=== PATIENT | male | born 1940 | race Caucasian/White ===

== ENCOUNTER 2025-03-10 22:15 | Inpatient (IN) | payer MEDICARE ==
[~2025-03-10] VITALS: Ht 165.1 cm; Wt 48.4 kg
[2025-03-10 22:28] LABS: BASOPHILS PERCENT AUTO 1 % (0-2); EOSINOPHILS ABSOLUTE AUTO 0.12 K/mm3 (0.00-0.68); EOSINOPHILS PERCENT AUTO 1 % (0-6); Hematocrit 39.1 % (37.0-53.0); Hemoglobin 12.8 g/dL (13.5-17.5); IMMATURE GRAN ABSOLUTE AUTO 0.02 K/mm3 (0.00-0.10); IMMATURE GRAN PERCENT AUTO 0 % (0-1); LYMPHOCYTES PERCENT AUTO 13 % (21-46); MONOCYTES ABSOLUTE AUTO 0.49 K/mm3 (0.16-1.47); MONOCYTES PERCENT AUTO 5 % (4-13); Mean Corpuscular HGB 28.5 pg (26.0-34.0); Mean Corpuscular HGB Conc 32.7 g/dL (31.5-36.5); Mean Corpuscular Volume 87 fL (80-100); NEUTROPHILS ABSOLUTE AUTO 8.15 K/mm3 (1.96-9.15); NEUTROPHILS PERCENT AUTO 80 % (41-73); Platelet Count 232 K/mm3 (150-400); RDW Coefficient Variation 13.8 % (11.7-14.2); RDW Standard Deviation 44.1 fL (35.1-46.3); Red Blood Cell Count 4.49 M/mm3 (4.30-5.90); White Blood Cell Count 10.18 K/mm3 (4.00-11.30)
[2025-03-10 22:50] LABS: Albumin, Blood 3.8 g/dL (3.4-5.0); Albumin/Globulin Ratio 1.2 (0.8-1.8); Bilirubin, Total 0.4 mg/dL (0.1-1.0); Bun/Creatinine Ratio 25.1 (12.0-20.0); Creatinine, Blood 0.72 mg/dL (0.60-1.20); Globulin, Blood 3.2 g/dL (2.2-4.0); Potassium, Blood 4.4 mmol/L (3.5-5.5)
[2025-03-11] VITALS (29 sets, daily range): BP systolic 99–188; BP diastolic 40–130
[2025-03-11] MEDS ORDERED: Aspirin 81 MG Chew PO ONE (00:15)
[2025-03-11] MEDS ORDERED: Clopidogrel Bisulfate 300 MG TABLET PO ONE (01:25)
[2025-03-11] MEDS ORDERED: Magnesium Hydroxide Conc 10 ML UDC PO PRN (01:30)
[2025-03-11] MEDS ORDERED: Ondansetron 4 MG TAB PO PRN (01:30)
[2025-03-11] MEDS ORDERED: Nitroglycerin 0.4 MG SUBL SL PRN (01:30)
[2025-03-11] MEDS ORDERED: Lactated Ringer's 1,000 ML IV SCH (02:00)
[2025-03-11 02:02] LABS: CHOL/HDL RATIO 1.6; Cholesterol 122 mg/dL (50-200); HDL Cholesterol 74 mg/dL (>39); LDL/HDL RATIO 0.5; Low Density Lipoprotein Chol 39 mg/dL (0-110); Magnesium, Blood 2.1 mg/dL (1.6-2.4); Triglycerides 43 mg/dL (30-160); Very Low Density Lipoprot Chol 8 mg/dL (6-32)
[2025-03-11] MEDS ORDERED: Dose Adjust by Pharmacy XX STA ×2 (02:27→22:22)
[2025-03-11 02:28] LABS: Anti-Xa UFH, PHA Monitoring <0.10 IU/mL; International Normalized Ratio 1.03
[2025-03-11] MEDS ORDERED: Heparin Sodium 5000 Units/ML 1ML MDV IV ONE (02:30)
[2025-03-11] MEDS ORDERED: Heparin Sodium,Porcine/0.5 NS 500 ML IV SCH (02:30)
[2025-03-11] MEDS ORDERED: Isosorbide Mono30 MG PO (04:07)
[2025-03-11] MEDS ORDERED: PANT40 PO (04:07)
[2025-03-11] MEDS ORDERED: CLOP75 PO (04:07)
[2025-03-11] MEDS ORDERED: LISI20 PO (04:08)
[2025-03-11] MEDS ORDERED: MAGNESIUM OXID500 MG PO (04:09)
[2025-03-11] MEDS ORDERED: AMLO5 PO (04:09)
[2025-03-11] MEDS ORDERED: CARV6.25 PO (04:09)
[2025-03-11] MEDS ORDERED: TAMS.4ER PO (04:10)
[2025-03-11] MEDS ORDERED: ZOCOR20 MG PO (04:10)
[2025-03-11] MEDS ORDERED: ASPI81CH PO (04:11)
[2025-03-11] MEDS ORDERED: GABA100 PO (04:11)
--- NOTE | 2025-03-11 06:46 | NUR ---
ADMISSION/SHIFT SUMMARY REPORT RECEIVED FROM ED NURSE. PT STOOD AND TRASFERRED TO BED W/ MINIMAL ASSISTANCE. PT A/OX4, ABLE TO MAKE NEEDS KNOWN. BP STABLE. ON TELE, SB 50S, PT DENIED CP/PRESSURE THROUGHOUT SHIFT. SPO2 >95% ON RA. HEPARIN INFUSING PER EMAR. CARDIOLOGY CONSULT CALLED IN. PT BLADDER SCANNED D/T NO OUTPUT SINCE ADMISSION, <350 MLS. DAUGHTER AT BEDSIDE. NO OTHER CHANGES. WILL REPORT TO ONCOMING RN.
[2025-03-11] MEDS ORDERED: NS 250 ML IV ONE (08:57)
[2025-03-11] MEDS ORDERED: Heparin Sodium 1000 Units/ML 10ML MDV ONE (08:57)
[2025-03-11] MEDS ORDERED: NiCARdipine HCL 1,000 MCG/5 ML SYR ONE (08:58)
[2025-03-11] MEDS ORDERED: Nitroglycerin 2 MG/20 ML BTL ONE (08:58)
[2025-03-11] MEDS ORDERED: NS 1,000 ML IV ONE ×2 (08:58→10:48)
[2025-03-11] MEDS ORDERED: Atorvastatin 40 MG Tab PO SCH (09:00)
[2025-03-11] MEDS ORDERED: Sennosides 8.6 MG Tab PO SCH (09:00)
[2025-03-11] MEDS ORDERED: Losartan Potassium 25 MG Tab PO SCH (09:00)
[2025-03-11] MEDS ORDERED: FentaNYL Citrate 50 MCG/ML 2 ML Injection ONE (10:48)
[2025-03-11] MEDS ORDERED: Midazolam HCl 1MG / ML 2ML Vial ONE (10:48)
[2025-03-11] MEDS ORDERED: NS 1,000 ML IV SCH (11:45)
--- NOTE | 2025-03-11 15:48 | NUR ---
End of shift note. Angio this morning, plan is to [facility] transfer to [facility] when a bed is available. Hospitalist is aware. Hep gtt was restarted after TR band recovery. Pt tolerated well. Pt has been OOB to the bathroom, some complaint of SOB while moving. No complaints CP. Daughter has been at bedside for most of the shift. Pt is able to make needs known, call light is within reach.
[2025-03-11] MEDS ORDERED: Lisinopril 20 MG Tab PO SCH ×2 (18:00→21:00)
--- NOTE | 2025-03-11 18:29 | NUR ---
TR BAND FULLY RECOVERED AND REMOVED, CLEANED AND TEGADERM PLACE.
--- NOTE | 2025-03-11 20:00 | NUR ---
ASSUMED CARE AT 1900. PT RESTING COMFORTABLY IN BED, DENIES PAIN, ENDORSES MILD SOB. RADIAL SITE MILDLY TENDER, SLIGHTLY PUFFY, NO BLEEDING OR OOZING. 1999 PT APPEARS DIAPHORETIC, BP CLIMBING FROM 140'S SYSTOLIC UP TO 180'S. PT DENIES ANY PAIN IN CHEST OR SHOULDER, NITRO GIVEN, BP DECREASED DOWN TO 160'S, DIAPHORESIS RESOLVED. WILL CONTINUE TO MONITOR.
[2025-03-11] MEDS ORDERED: Gabapentin 100 MG Cap PO SCH (21:00)
[2025-03-11] MEDS ORDERED: Tamsulosin HCl 0.4 MG Cap PO SCH (21:00)
--- NOTE | 2025-03-11 23:05 | NUR ---
CALL PLACED TO MD REGARDING PTS BLOOD PRESSURE. BLOOD PRESSURE WAS REDUCED TO 110 SYSTOLIC, BUT BEGAN ELEVATING INTO 180'S AGAIN. PT NO LONGER DIAPHORETIC, STILL DENYING CHEST/SHOULDER/JAW PAIN. MD NOTIFIED, AWAITING NEW ORDERS.
[2025-03-11] MEDS ORDERED: HydrALAZINE HCl 20 MG / ML 1ML Vial IV PRN (23:10)
[2025-03-12] VITALS (17 sets, daily range): BP systolic 68–153; BP diastolic 36–62
[2025-03-12] MEDS ORDERED: Albuterol 2.5 MG/3 ML VIAL INH PRN (00:05)
[2025-03-12] MEDS ORDERED: Ipratropium/Albuterol SulF 2.5-0.5MG/3 ML Amp INH SCH (00:05)
[2025-03-12 00:58] LABS: BASOPHILS ABSOLUTE AUTO 0.08 K/mm3 (0.00-0.23); BASOPHILS PERCENT AUTO 1 % (0-2); EOSINOPHILS ABSOLUTE AUTO 0.32 K/mm3 (0.00-0.68); EOSINOPHILS PERCENT AUTO 4 % (0-6); Hematocrit 37.1 % (37.0-53.0); Hemoglobin 12.3 g/dL (13.5-17.5); IMMATURE GRAN ABSOLUTE AUTO 0.01 K/mm3 (0.00-0.10); IMMATURE GRAN PERCENT AUTO 0 % (0-1); LYMPHOCYTES ABSOLUTE AUTO 1.95 K/mm3 (0.84-5.20); LYMPHOCYTES PERCENT AUTO 26 % (21-46); MONOCYTES PERCENT AUTO 7 % (4-13); Mean Corpuscular HGB 28.3 pg (26.0-34.0); Mean Corpuscular HGB Conc 33.2 g/dL (31.5-36.5); Mean Corpuscular Volume 85 fL (80-100); Mean Platelet Volume 9.2 fL (9.1-12.4); NEUTROPHILS ABSOLUTE AUTO 4.58 K/mm3 (1.96-9.15); NEUTROPHILS PERCENT AUTO 62 % (41-73); Platelet Count 223 K/mm3 (150-400); RDW Coefficient Variation 14.1 % (11.7-14.2); RDW Standard Deviation 43.8 fL (35.1-46.3); Red Blood Cell Count 4.35 M/mm3 (4.30-5.90); White Blood Cell Count 7.44 K/mm3 (4.00-11.30)
[2025-03-12] MEDS ORDERED: LORazepam 0.5 MG Tab PO ONE (01:00)
[2025-03-12 01:24] LABS: Albumin, Blood 3.6 g/dL (3.4-5.0); Albumin/Globulin Ratio 1.2 (0.8-1.8); Bilirubin, Total 0.5 mg/dL (0.1-1.0); Bun/Creatinine Ratio 30.1 (12.0-20.0); Calcium, Blood 8.9 mg/dL (8.5-10.1); Creatinine, Blood 0.7 mg/dL (0.60-1.20); Magnesium, Blood 1.9 mg/dL (1.6-2.4); Potassium, Blood 3.6 mmol/L (3.5-5.5); Total Protein, Blood 6.6 g/dL (6.4-8.2)
--- NOTE | 2025-03-12 02:05 | NUR ---
HYDRALAZINE ADMINISTERED AT 2335, SPRAYER AUTOMATIC SPRAY MACHINE CALLED TO REPORT PTS HR IN 130'S. UPON ARRIVAL TO ROOM, MEDICAL AFFAIRS DIRECTOR AND RT AT BEDSIDE. RT ADMINISTERING BREATHING TREATMENT, PT VERY DYSPNEIC WITH INCREASED WORK OF BREATHING. LUNG SOUNDS VERY TIGHT WITH SEVERE WHEEZES. BLOOD PRESSURE ELEVATED TO 190'S SYSTOLIC. ICU AND PCU CHARGE NURSES TO BEDSIDE WELL. MD NOTIFIED AT TO ROOM AT 0010. AFTER BREATHING TREATMENT, PT REPORTED INCREASED EASE OF BREATHING. LUNG SOUNDS LESS WHEEZY AND TIGHT. IMMEDIATELY AFTER BREATHING TREATMENT, PT REPORTED "SHAKING LEGS". THIS RN NOTICED PTS THIGH MUSCLES APPEARED TO BE SPASMING REPEATEDLY AND QUICKLY. NOTIFIED AND BACK TO BEDSIDE. LABS ORDERED, BUT RESULTED WITH NO SIGNIFICIANT ABNORMALITIES. CHECKED ON PT AGAIN AT 0145, PT REPORTED HALLUCINATIONS OF PEOPLE IN RED, GLIMMERING PILLARS AND CEMENT WALKWAYS. [employer] CONSULTANT TO BEDSIDE. SMILE EQUAL BILATERALLY, STRENGTH EQUAL IN BUE. PERRLA, PUPILS 2MM. PT REPORTS EXTREME SLEEP DEPRIVATION AND REQUESTED ATIVAN. WILL CONTINUE TO MONITOR.
--- NOTE | 2025-03-12 04:22 | NUR ---
SHIFT SUMMARY PT A/OX4, DENIES PAIN, SEE PREVIOUS NOTES REGARDING HYPERTENSIVE AND RESPIRATORY EPISODES THIS SHIFT. PT ALSO REPORTED NEW ONSET HALLUCINATIONS AND SEVERE LONG STANDING SLEEP DEPRIVATION. PT AMBULATING WITH SBA TO BATHROOM WITH IV POLE. HAVING REGULAR BMS AND URINATION PATTERNS. BLOOD PRESSURE HAS STABILIZED IN 110 S, HEART RATE 50 S. HEPARIN GTT RUNNING AT 16. WILL CONTINUE TO MONITOR.
[2025-03-12 04:49] LABS: Hematocrit 35.1 % (37.0-53.0); Hemoglobin 11.8 g/dL (13.5-17.5); Mean Corpuscular HGB 29.3 pg (26.0-34.0); Mean Corpuscular HGB Conc 33.6 g/dL (31.5-36.5); Mean Corpuscular Volume 87 fL (80-100); Mean Platelet Volume 9.4 fL (9.1-12.4); Platelet Count 206 K/mm3 (150-400); RDW Standard Deviation 44.6 fL (35.1-46.3); Red Blood Cell Count 4.03 M/mm3 (4.30-5.90); White Blood Cell Count 9.22 K/mm3 (4.00-11.30)
[2025-03-12] MEDS ORDERED: Clopidogrel Bisulfate 75 MG Tab PO SCH (05:00)
[2025-03-12] MEDS ORDERED: Pantoprazole Sodium 40 MG Tab PO SCH (06:00)
[2025-03-12] MEDS ORDERED: Clarify Drug Order XX ONE (06:20)
--- NOTE | 2025-03-12 08:50 | NUR ---
AM NOTE: PT A/O ON ROOM AIR LYING IN BED THIS MORNING. HR 50-60s AND BP 145/56. PT REPORTS NO CHEST PAIN THIS MORNING AFTER REPORTS OF IT LAST NIGHT. MD AT BEDSIDE THIS MORNING TO DISCUSS CARE PLAN WITH PT AND EVENTUALLY TRANSFER TO [facility] FOR FURTHER CARDIAC INTERVENTION. PT REPORTS HAVING POOR SLEEP LAST NIGHT, SO ALLOWING REST THIS MORNING. PT LYING IN BED, CALL WITHIN REACH.
[2025-03-12] MEDS ORDERED: Aspirin 81 MG Chew PO SCH (09:00)
[2025-03-12] MEDS ORDERED: Isosorbide Mononitrate 30 MG TABCR PO SCH (09:00)
[2025-03-12] MEDS ORDERED: Magnesium Oxide 400 MG Tab PO SCH (09:00)
[2025-03-12] MEDS ORDERED: NS 1,000 ML IV ONE (11:20)
[2025-03-12] MEDS ORDERED: NS 500 ML IV ONE (11:25)
--- NOTE | 2025-03-12 12:48 | NUR ---
update patient blood pressure 87/47 map of 59. this rn called md croft to update on blood pressure. Patient is non sympotmatic with blood pressures. Md Croft said to continue monitor and to call if patient becomes symptomatic with soft blood pressures.
--- NOTE | 2025-03-12 13:30 | NUR ---
TRANSFER OF CARE: GAVE REPORT TO GANGA PUENTES AT APPROX 1330 TO ASSUME CARE OF PT. PT LYING IN BED, CALL WITHIN REACH.
--- NOTE | 2025-03-12 13:54 | NUR ---
ASSUMED CARE: ASSUMED CARE OF PT @1350. PT ALERT AND ORIENTED X4, ABLE TO FOLLOW COMMANDS AND MAKE NEEDS KNOWN. STRENGTH EQUAL BILATERALLY. HR SR. AFEBILE. SPO2 >96% ON ROOM AIR. RESPIRTAIONS EVEN AND UNLABORED. LUNG SOUNDS DIM IN BASES. PT POST ANGIOGRAM 03/11/25. R. RADIAL SITE WITH TEGADERM IN PLACE. SITE TENDER, NO BRUISING OOZING NOTED. HEPARING GTT. PT REMAINS ON WAIT LIST FOR [facility]. DAUGHTER AT BEDSIDE AND UPDATED ON PT PLAN OF CARE. BED IN LOW, CALL LIGHT IN REACH.
--- NOTE | 2025-03-12 17:15 | NUR ---
SHIFT SUMMARY: PT ALERT AND ORIENTED X4, ABLE TO FOLLOW COMMANDS AND MAKE NEEDS KNOWN. STRENGTH EQUAL BILATERALLY. SENSATION INTACT. BP STABLE. HR SR 70'S. AFEBRILE. SPO2 >95% ON ROOM AIR. LUNG SOUNDS COARSE, PT WITH NON PRODUCTIVE COUGH. RESPIRTAIONS EVEN AND UNLABORED AT REST. AMIO GTT @0.5MG/HR. PT RECEIVED 1 UNIT OF PRBC, TOLERATED WELL. ABD SOFT NON TENDER, BOWEL SOUNDS +. PULSES PALPABLE THROUGHOUT. +2 EDEMA NOTED IN BLE. AT BEDSIDE THIS EVENING, UPDATED ON PT PLAN OF CARE. BED IN LOW, CALL LIGHT IN REACH, WILL REPORT TO ONCOMING RM.
--- NOTE | 2025-03-12 17:22 | NUR ---
SHIFT SUMMARY: NO ACUTE CHANGES SINCE TRANSFER OF CARE. PT REMAINS ON HEPARIN DRIP. REMAINS ON TRANSFER LIST FOR [facility]. BED IN LOW, CALL LIGHT IN REACH, WILL REPORT TO ONCOMING RN
[2025-03-12] MEDS ORDERED: Lisinopril 10 MG Tab PO SCH (18:00)
--- NOTE | 2025-03-12 23:04 | NUR ---
PT [facility]BRA TRANSFERRED BY AMBULANCE TO ROOM 5409 AT [facility] AT 1038. VSS, ON RA, SATS ABOVE 90%. PT TRANSFERRED FROM HOSPITAL BED TO [facility] INDEPENDENTLY. HEPARIN INFUSING AT 16. ALL BELONGINGS TRANSPORTED BY DAUGHTER WHO IS TO FOLLOW IN PERSONAL VEHICLE. PT DENIED CHEST PAIN/PRESSURE UPON DEPARTURE. REPORT GIVEN TO CORRIE PUENTES AT 1055.
== END 2025-03-12 22:45 | disposition short-term general hospital (02) | DRG 281 ==
LOC: ER 22:15 → PCU 22:16 → ERHOLD 22:16 → PCU 22:16 → ERHOLD 22:17 → PCU 22:18 → ERHOLD 03-11 03:13 → PCU 03-11 14:02
PROVIDERS: Emergency Medicine; Family Medicine; Internal Medicine Cardiovascular Disease; ADMIT Internal Medicine
PROC: B2111ZZ Fluoroscopy of Multiple Coronary Arteries using Low Osmolar Contrast (ICD-10-PCS; principal; 2025-03-11)
PROC: 4A023N7 Measurement of Cardiac Sampling and Pressure, Left Heart, Percutaneous Approach (ICD-10-PCS; 2025-03-11)
DX: T82.855A Stenosis of coronary artery stent, initial encounter (principal); R64 Cachexia; I21.A9 Other myocardial infarction type; Z68.1 Body mass index [BMI] 19.9 or less, adult; Y83.8 Other surgical procedures as the cause of abnormal reaction of the patient, or of later complication, without mention of misadventure at the time of the procedure; I25.2 Old myocardial infarction; I10 Essential (primary) hypertension; E78.5 Hyperlipidemia, unspecified; I27.20 Pulmonary hypertension, unspecified; G62.9 Polyneuropathy, unspecified; I08.0 Rheumatic disorders of both mitral and aortic valves; G47.00 Insomnia, unspecified; J44.9 Chronic obstructive pulmonary disease, unspecified; I95.9 Hypotension, unspecified; F17.210 Nicotine dependence, cigarettes, uncomplicated; Z95.820 Peripheral vascular angioplasty status with implants and grafts; Z79.82 Long term (current) use of aspirin; Z79.02 Long term (current) use of antithrombotics/antiplatelets; Z79.899 Other long term (current) drug therapy; I25.10 Atherosclerotic heart disease of native coronary artery without angina pectoris; I44.7 Left bundle-branch block, unspecified; E86.0 Dehydration; I49.3 Ventricular premature depolarization; Z71.6 Tobacco abuse counseling
CPT/HCPCS: 36415; 71046; 76937; 80053; 80061; 83036; 83735; 83880; 84443; 84484; 85025; 85027; 85379; 85520; 85610; 85730; 93005; 93010; 93306; 93458; 94640; 94664; 94762; 96374; 96376; 99152; 99285-25; A9270; C1769; C1894; G0378; J0360; J1644; J2250; J3010; J7030; J7050; J7120; Q9967